=== PATIENT | female | born 1960 | race Caucasian/White ===

== ENCOUNTER 2017-08-27 19:33 | Emergency (ER) | END 2017-08-27 22:44 | disposition home or self-care (01) ==

== ENCOUNTER 2018-02-06 15:01 | Emergency (ER) | END 2018-02-06 17:10 | disposition home or self-care (01) ==

== ENCOUNTER 2018-07-21 08:32 | Emergency (ER) | END 2018-07-21 11:16 | disposition home or self-care (01) ==

== ENCOUNTER 2018-12-27 09:34 | Emergency (ER) | payer OTHER ==
[~2018-12-27] VITALS: Ht 160 cm; Wt 75.8 kg
[~2018-12-27 09:34] MED LIST: ASPI-1044 PO; DICL100G37 TOP; GLIP10TA14 PO; HYDR-4011 PO; IBUP-1542 PO; MECL12.574 PO; MTF1000T PO; OMEP10SU2 PO; ONDA4TAB14 PO; TRAM50TA2 PO
[2018-12-27 09:36] VITALS: Ht 160 cm; Wt 75.8 kg
[2018-12-27] MEDS ORDERED: SOD CHLORIDE 0.9% 500 ML IV STA (10:13)
[2018-12-27] MEDS ORDERED: MECLIZINE 12.5 MG TAB PO ONE (10:30)
[2018-12-27] MEDS ORDERED: METF100010 PO (10:47)
[2018-12-27] MEDS ORDERED: BENA10TA4 PO (10:47)
[2018-12-27] MEDS ORDERED: PIOG15TA12 PO (10:48)
[2018-12-27] MEDS ORDERED: OMEP40CA6 PO (10:48)
[2018-12-27] MEDS ORDERED: GLIP10TA14 PO (10:49)
[2018-12-27] MEDS ORDERED: ASPI81TA52 PO (10:49)
[2018-12-27] MEDS ORDERED: ONDANSETRON 4 MG INJ IV STA (11:10)
[2018-12-27] MEDS ORDERED: ONDANSETRON 4 MG INJ ONE (11:11)
--- NOTE | 2018-12-27 12:03 | ERD ---
ER Documentation Chief Complaint Chief Complaint dizziness this morning, hx verdigo HPI This is a 58-year-old female with a past medical history of aspirin, diabetes, GERD, vertigo who is presenting with increased dizziness and nausea with nonbilious nonbloody vomiting beginning this morning. The patient reports that movement of her head and looking to the right makes her symptoms worse. She has had symptoms similar to this in the past, which improved with medication. The patient does not endorse any double or blurry vision. She does not feel imbalanced. She is ambulatory without significant difficulty in the [facility]. The patient denies lightheadedness or dizziness. She denies any focal deficits. She denies any weakness or numbness or tingling to the face or extremities. The patient denies feeling sick recently. The patient denies fever or chills. The patient has had no headache. The patient does not endorse neck or back pain. The patient has had no chest pain or trouble breathing. The patient denies abdominal pain. The patient denies changes to bowel movements or urination. ROS All systems reviewed and are negative except as per history of present illness. Medications Home Meds Reported Medications Glipizide* (Glipizide*) 10 Mg Tablet, 10 MG PO BID, TAB 12/27/18 Aspirin (Low Dose Aspirin) 81 Mg Tablet.dr, 81 MG PO DAILY, #30 TAB 12/27/18 Omeprazole* (Omeprazole*) 40 Mg Capsule.dr, 40 MG PO DAILY, #30 CAP 12/27/18 Pioglitazone Hcl* (Actos*) 15 Mg Tablet, 15 MG PO DAILY, #30 TAB 12/27/18 Metformin Hcl* (Metformin Hcl*) 1,000 Mg Tablet, 1000 MG PO WITH BREAKFAST DINNE, #60 TAB 12/27/18 Benazepril Hcl* (Benazepril Hcl*) 10 Mg Tablet, 10 MG PO DAILY, #30 TAB 12/27/18 Discontinued Reported Medications Aspirin Delayed Release (Aspirin Delayed Release) 81 Mg Tablet.dr, 81 MG PO DAILY 06/21/13 Omeprazole* (Prilosec*) 10 Mg Suspdr.pkt, 10 MG PO DAILY 06/21/13 Glipizide* (Glipizide*) 10 Mg Tablet, 10 MG PO BID 06/21/13 Metformin* (Glucophage*) 1,000 Mg Tablet, 1000 MG PO BID 06/21/13 Discontinued Scripts Hydrocodone/Acetaminophen (Trimont 5-325 Tablet) 1 Each Tablet, 1 TAB PO Q6H PRN for PAIN, #7 TAB Prov:TJ GRECO PA-C 07/21/18 Diclofenac Sodium* (Voltaren* Gel) 1% -100 Gm Gel, 2 GM TOP QID, #1 TUB Prov:TJ GRECO PA-C 07/21/18 Ibuprofen* (Motrin*) 600 Mg Tab, 600 MG PO Q6, #30 TAB Prov:TJ GRECO PA-C 07/21/18 Tramadol HCl (Tramadol HCl) 50 Mg Tablet, 50 MG PO Q4 PRN for PAIN, #20 TAB Prov:LG JOHNS MD 02/06/18 Ondansetron (Ondansetron Odt) 4 Mg Tab.rapdis, 4 MG PO Q6H PRN for NAUSEA AND/OR VOMITING, #10 TAB Prov:RONNIE,RAMIRO 08/27/17 Meclizine Hcl* (Antivert*) 12.5 Mg Tab, 12.5 MG PO Q6H PRN for DIZZINESS, #20 TAB Prov:RONNIE,RAMIRO 08/27/17 Allergies Allergies: Coded Allergies: No Known Allergy (Verified , 12/27/18) PMhx/Soc History of Surgery: No Anesthesia Reaction: No Hx Neurological Disorder: No Hx Respiratory Disorders: No Hx Cardiac Disorders: Yes (Hypertension, diabetes) Hx Psychiatric Problems: No Hx Miscellaneous Medical Probl: Yes (Vertigo, GERD) Hx Alcohol Use: No Hx Substance Use: No Hx Tobacco Use: No Smoking Status: Never smoker FmHx Family History: diabetes Physical Exam Vitals Vital Signs Date Temp Pulse Resp B/P (MAP) Pulse Ox O2 O2 Flow FiO2 Time Delivery Rate 12/27/18 77 156/73 11:21 (100) 12/27/18 70 126/56 11:21 (79) 12/27/18 70 146/71 11:21 (96) 12/27/18 86 18 126/58 100 Room Air 10:30 (80) 12/27/18 98.3 77 18 126/62 99 09:36 (83) Physical Exam Const: No apparent distress, well-developed, well-nourished Head: Normocephalic, Atraumatic Eyes: Normal Conjunctiva. Right beating nystagmus. Otherwise extraocular movements intact. Abnormal head impulse test. No skew deviation. No vertical nystagmus. Pupils equal, round and reactive to light ENT: Normal External Ears, Nose and Mouth. Neck: Full range of motion. No meningismus. Resp: Clear to auscultation bilaterally, No wheezes, rales or rhonchi Cardio: Regular rate and rhythm. No murmurs, rubs or gallops Abd: Soft, non tender, non distended. Normal bowel sounds Skin: No petechiae or rashes Back: No midline tenderness. No CVA tenderness Ext: No cyanosis, or edema Neur: Awake and alert, oriented 4. Cranial nerves intact. No facial droop. Normal strength, sensation and coordination. Psych: Normal Mood and Affect Result Diagram: 12/27/18 1020 12/27/18 1020 Results 24 hrs Laboratory Tests Test 12/27/18 10:20 White Blood Count 8.0 10^3/ul Red Blood Count 4.33 10^6/ul Hemoglobin 11.6 g/dl Hematocrit 35.8 % Mean Corpuscular Volume 82.7 fl Mean Corpuscular Hemoglobin 26.8 pg Mean Corpuscular Hemoglobin Concent 32.4 g/dl Red Cell Distribution Width 13.0 % Platelet Count 285 10^3/UL Mean Platelet Volume 9.9 fl Immature Granulocytes % 0.100 % Neutrophils % 84.0 % Lymphocytes % 11.8 % Monocytes % 3.6 % Eosinophils % 0.4 % Basophils % 0.1 % Nucleated Red Blood Cells % 0.0 /100WBC Immature Granulocytes # 0.010 10^3/ul Neutrophils # 6.7 10^3/ul Lymphocytes # 0.9 10^3/ul Monocytes # 0.3 10^3/ul Eosinophils # 0.0 10^3/ul Basophils # 0.0 10^3/ul Nucleated Red Blood Cells # 0.0 10^3/ul Sodium Level 141 mmol/L Potassium Level 4.5 mmol/L Chloride Level 104 mmol/L Carbon Dioxide Level 26 mmol/L Anion Gap 11 Blood Urea Nitrogen 18 mg/dl Creatinine 0.44 mg/dl Est Glomerular Filtrat Rate mL/min > 60 mL/min Glucose Level 205 mg/dl Calcium Level 9.5 mg/dl Troponin I < 0.012 ng/ml Current Medications Medications Dose Sig/Johana Start Time Status Last (Trade) Ordered Route PRN Stop Time Admin Dose Reason Admin Sodium 500 ml @ Q1H STAT 12/27/18 DC 12/27/18 Chloride 500 mls/hr IV 10:13 12/27/18 10:46 11:12 Meclizine 25 mg ONCE ONCE 12/27/18 DC 12/27/18 HCl PO 10:30 12/27/18 10:46 (Antivert) 10:31 Ondansetron 4 mg ONCE STAT 12/27/18 DC 12/27/18 HCl (Zofran IV 11:10 12/27/18 11:13 Inj) 11:12 Ondansetron 4 mg STK-MED 12/27/18 DC HCl (Zofran ONCE .ROUTE 11:11 12/27/18 Inj) 11:12 Procedures/MDM MDM The patient's presentation warrants further investigation. Previous medical records, if available, were reviewed. LABS The patient's laboratory testing was obtained and reviewed. No emergent treatmen t was required unless described below. CBC: No E/o systemic infection or thrombocytopenia. Normocytic anemia, not emergent. Chemistry: No E/o severe acidosis or alkalosis or renal failure or diabetic ketoacidosis Troponin: No E/o acute ischemia EKG EKG read by me: Rate/Rhythm: Regular rate and rhythm at a rate of 75 bpm Intervals: Normal Polaris: Normal Impression: No evidence of acute ischemia or arrhythmia TREATMENT/DISPOSITION The patient presents with dizziness and nausea. The patient does have a history of vertigo, and I do have high suspicion for peripheral vertigo today. The p atient has a reassuring physical exam. I have decreased suspicion for central vertigo. The patient's HINTS exam is reassuring. The patient is not clinically orthostatic. The patient has no signs of emergent or symptomatic anemia. The patient does not have any emergent electrolyte or metabolic emergencies. I have decrease suspicion for a thyroid disorder. The patient is not toxic appearing. I have decreased suspicion for an infectious etiology of symptoms. The patient's EKG and troponin are reassuring. I have low suspicion for acute coronary syndrome. I do not see evidence of any emergent cardiac arrhythmia, which includes but is not limited to heart block, Brugada syndrome or WPW. The patient has no heart murmurs or rales. There is no evidence of cardiomegaly on exam or chest xray. I have low suspicion for hypertrophic cardiomyopathy. I do not see evidence of CHF. The patient does not endorse any chest or pleuritic pain. The history is negative for bleeding or clotting disorders. The patient has not been involved in any recent prolonged trips or surgeries or hospitalizations. The patient has no calf tenderness or swelling. I have decreased suspicion for PE as the etiology of symptoms. The patient has no focal deficits. The neurologic exam is reassuring. I have decreased suspicion for cerebral ischemia. There was no trauma or injury. There is no personal or family history of cerebral aneurysm. I have decreased suspicion for SAH or other ICH. I have low suspicion for temporal arteritis, cavernous venous thrombosis, subdural hematoma, epidural hematoma, meningitis. The patient was treated with IV fluids, Zofran and meclizine with significant improvement of her symptoms. DISCHARGE Upon reevaluation of the patient, symptoms have improved. No emergent diagnoses were identified. At this time, I feel that the patient stable for discharge. The patient was instructed to follow-up with a primary care physician in 1-3 days. The patient will be given strict precautions with which to return to the emergency department. Prescriptions: Meclizine The patient's blood pressure was elevated at greater than 120/80 while in the emergency department. The patient was otherwise stable with no evidence of hypertensive urgency or emergency. The patient does not require admission for blood pressure control. I have discussed with the patient the risks of hypertension. I have instructed the patient to return to the ER for any new or worsening symptoms including chest pain, shortness of breath, headache, blurred vision, confusion, nausea, vomiting or LOC. I have advised the patient to follow up with the primary care physician for outpatient monitoring and treatment for hypertension in 1-3 days. Disclaimer: Inadvertent spelling and grammatical errors are likely due to EHR/dictation software use and do not reflect on the overall quality of patient care. Note that the electronic time recorded on this note does not necessarily reflect the actual time of the patient encounter. Departure Diagnosis: Primary Impression: Dizziness Additional Impressions: Nausea & vomiting Vomiting type: unspecified Vomiting Intractability: non-intractable Qualified Codes: R11.2 - Nausea with vomiting, unspecified Normocytic anemia Condition: Stable Patient Instructions: Dizziness (Vertigo) and Balance Problems: Ensuring Your Safety, Possible Causes of Dizziness or Fainting, Nausea and Vomiting-Adult Additional Instructions: Thank you for for coming to [facility] for your care today. Please ask your nurse or provider if you have questions about your care today and do not leave until all your questions have been answered. Please use any medications given as directed and follow-up with your doctor (or the doctor you were referred to) in the next 1-3 days. If you do not have a primary care doctor you may follow up at the [facility] or on license of [facility] (listed below). You may also use motrin and tylenol as needed for fever and/or pain unless instructed otherwise by your provider or nurse. Indications for more urgent follow-up have been discussed, but you may return to the Emergency Department at ANY time for any worrisome or worsening symptoms. If you have abdominal pain, please know that no test or exam you received is perfect and you should follow up within 8 hours for continued pain. If you had any imaging studies today, such as an X-Ray or CT Scan, these studies will be reviewed later by a radiologist. You will be called if there are important findings that were not identified today, so make sure the contact information you provided at registration is correct. If you received any narcotic pain control medicine today, such as Vicodin, Morphine or Dilaudid, your coordination and judgment may be affected for a number of hours. Please do not drive or operate heavy machinery, and you may want someone to assist you at home. If you were given a prescription for narcotic medication, be aware that it is very addictive- use sparingly and only if necessary. PLEASE SEEK FURTHER EVALUATION AND MANAGEMENT AT YOUR DOCTORS OFFICE WITHIN THE NEXT 1-3 DAYS. IT IS YOUR RESPONSIBILITY TO MAKE AN APPOINTMENT FOR FOLOW-UP CARE. IF YOU HAVE A PRIMARY DOCTOR, PLEASE CALL THEIR OFFICE TO SCHEDULE AN APPOINTMENT FOR FOLLOW UP. IF YOU DO NOT HAVE A PRIMARY DOCTOR YOU CAN CALL OUR PHYSICIAN REFERRAL HOTLINE AT IF YOU CAN NOT AFFORD TO SEE A PHYSICIAN YOU CAN CHOSE FROM THE FOLLOWING [facility]: [facility] [id number] [facility]. [facility] [address] [facility] [facility] [address] [facility] [address] [facility] [address] [facility]. [facility]. [address] CHRIS HIGGINS MD December 27, 2018 12:03
[2018-12-27] MEDS ORDERED: MECL12.574 PO (12:04)
[2018-12-27 12:16] VITALS: BP 135/65; PULSE 68; RESP 20
== END 2018-12-27 12:42 | disposition home or self-care (01) ==
LOC: E/R 09:34
DX: D64.9 Anemia, unspecified (principal); E11.9 Type 2 diabetes mellitus without complications; I10 Essential (primary) hypertension; R11.2 Nausea with vomiting, unspecified; Z79.84 Long term (current) use of oral hypoglycemic drugs; Z79.82 Long term (current) use of aspirin
CPT/HCPCS: 36415; 80048; 84484; 85025; 96374; J2405; J7040; Z7502; Z7610; 93005